=== PATIENT | female | born 1980 ===

== ENCOUNTER → 2017-12-02 | Outpatient (CLI) | payer BC ==
--- NOTE | 2017-12-03 07:34 | RADIOLOGY REPORT (SQ) ---
EXAM DESCRIPTION: MRI RT LOWER JOINT WITHOUT COMPLETED DATE/TIME: 12/02/2017 9:35 pm REASON FOR STUDY: RIGHT KNEE PAIN M25.561 PAIN IN RIGHT KNEE COMPARISON: None. TECHNIQUE: Rightknee images acquired and stored on PACS. Multiplanar images include fat sensitive s equences as T1, water sensitive sequences as FST2 or STIR, cartilage sensitive sequences as FSPD, and gradient echo sequences. LIMITATIONS: Some of the sequences are mildly limited by motion. FINDINGS: JOINT AND BURSAE: Trace joint effusion. BONE CORTEX AND MARROW: No worrisome lesions. Probable bone island in proximal medial tibia. ACL: Grossly intact. PCL: Intact. MCL: Intact. LCL: Intact. MEDIAL MENISCUS: No tears. No abnormal signal. LATERAL MENISCUS: No tears. No abnormal signal. MEDIAL COMPARTMENT: Cartilage preserved. No bone bruises or reactive marrow edema. No osteophytes. LATERAL COMPARTMENT: Cartilage preserved. No bone bruises or reactive marrow edema. No osteophytes. PATELLA: Normal location. No suggestion of significant chondral loss. EXTENSOR MECHANISM: Intact. Quadriceps and patella tendons normal. SOFT TISSUES: Adjacent muscles and subcutaneous tissues normal. Normal flow void in popliteal artery and vein. OTHER: No other significant finding. IMPRESSION: 1. Other than a trace joint effusion, significant internal derangement of the right knee is not appreciated. Cruciate and collateral ligaments generally look intact. No overt meniscus tea r or chondral loss. TECHNICAL DOCUMENTATION: JOB ID: [id number] [employer]- All Rights Reserved Reading location - IP/workstation name: [email or web address]
== END ==
LOC: RAD 17:58
PROVIDERS: ATTEND Physician Assistant
DX: M25.561 Pain in right knee (principal); M25.461 Effusion, right knee